=== PATIENT | female | born 1995 | race Caucasian/White ===

== ENCOUNTER 2021-01-03 06:04 | Inpatient (IN) ==
[2021-01-03] MEDS ORDERED: miSOPROStoL 200 MCG TABLET VAG PRN (07:32)
[2021-01-03] MEDS ORDERED: BUTORPHANOL 2 MG/ML VIAL IV PRN (07:32)
[2021-01-03] MEDS ORDERED: CARBOPROST TROMETHAMINE 250 MCG/ML AMP IM PRN (07:32)
[2021-01-03] MEDS: LACTATED RINGERS 1,000 ML IV SCH ×2 (07:45→13:53)
[2021-01-03] MEDS ORDERED: OXYTOCIN/LR 20 UNIT/1,000 ML BAG IV SCH (08:00)
[2021-01-03 08:06] LABS: Basophils % 0.2 % (0.0-0.8); Eosinophils # 0.1 10*3/uL (0.0-0.87); Eosinophils % 1.3 % (0.00-10.9); Hematocrit 35.8 VOL% (35.7-47.0); Hemoglobin 11.3 GM/DL (12.0-16.0); Immature Granulocytes % 0.9 %; Immature Granulocytes Absolute 0.08 #; Lymphocytes # 1.5 10*3/uL (1.4-4.0); Lymphocytes % 17.3 % (21.3-54.2); Mean Corpuscular HGB Conc 31.6 GM/DL (32-36); Mean Corpuscular Volume 83.1 FL (87-102); Mean Platelet Volume 10.5 FL (9.6-12.0); Monocytes % 8.1 % (1.7-12.7); Neutrophils % 72.2 % (38.7-73.9); Platelet Count 218 T/CUMM (130-400); Red Blood Count 4.31 MC/CUMM (3.8-5.5); Red Cell Distribution Width 14.5 % (9.3-17.3); White Blood Count 8.6 T/CUMM (4-12)
[2021-01-03] MEDS ORDERED: ePHEDrine 50 MG/ML VIAL IV PRN (12:53)
[2021-01-03] MEDS ORDERED: NALOXONE 0.4 MG/ML VIAL IV PRN (12:53)
[2021-01-03] MEDS ORDERED: CITRIC ACID/SODIUM CITRATE 30 ML UDCUP PO ONE (12:53)
[2021-01-03] MEDS ORDERED: FAMOTIDINE 20 MG/2 ML VIAL IV ONE (12:53)
[2021-01-03] MEDS ORDERED: hydrOXYzine HCL 25 MG/1 ML VIAL IM PRN (12:53)
[2021-01-03] MEDS ORDERED: diphenhydrAMINE 50 MG/1 ML VIAL IV PRN (12:53)
[2021-01-03] MEDS ORDERED: PROMETHAZINE 25 MG/1 ML VIAL IM PRN (12:53)
[2021-01-03] MEDS ORDERED: fentaNYL 2 MCG/ROPIV 0.2% EPID 100 ML EPIDURAL SCH (13:00)
[2021-01-03] MEDS: ONDANSETRON 4 MG/2 ML VIAL IV PRN ×2 (13:52→19:47)
[2021-01-03 15:58] LABS: Bilirubin,Urine Negative (Negative); Blood, Urine Negative (Negative); Glucose,Urine (UA) Negative (Negative); Ketones,Urine 80 mg/dL (Negative); Mucus,Urine Occasional /LPF (Occasional); Nitrite,Urine Negative (Negative); Protein,Urine Negative; RBC,Urine <1 /HPF (0-4); Urine Appearance CLEAR (Clear); Urine Color Yellow (Yellow); Urine Specific Gravity 1.011 (1.001-1.035); Urine Urobilinogen < 2.0 EU/DL (0.2-1.0)
[2021-01-03] MEDS ORDERED: fentaNYL 100 MCG/2 ML VIAL ONE (16:28)
[2021-01-03] MEDS ORDERED: LIDOCAINE 1% 50 ML VIAL ONE (18:21)
[2021-01-03] MEDS ORDERED: METHYLERGONOVINE 0.2 MG/1 ML AMP ONE (18:22)
[2021-01-03] MEDS ORDERED: miSOPROStoL 200 MCG TABLET PO ONE (18:32)
[2021-01-03] MEDS ORDERED: METHYLERGONOVINE 0.2 MG/1 ML AMP IM ONE (18:35)
[2021-01-03 18:42] LABS: Cord Venous Blood HCO3 23.6 MMOL/L; Cord Venous Blood PCO2 40.1 MMHG
[2021-01-03] MEDS ORDERED: OXYTOCIN/LR 20 UNIT/1,000 ML BAG IV ONE (19:58)
[2021-01-03] MEDS ORDERED: BENZOCAINE 20%/MENTHOL 0.5% SPRAY 56 GM CAN TOP PRN (21:59)
[2021-01-03] MEDS ORDERED: WITCH HAZEL PADS 100/JAR TOP PRN (22:00)
[2021-01-03] MEDS ORDERED: HYDROCORTISONE 2.5% RECTAL CREAM 30 GM TUBE TOP PRN (22:00)
[2021-01-03 23:03] LABS: Hematocrit 31.3 VOL% (35.7-47.0); Hemoglobin 9.9 GM/DL (12.0-16.0)
[2021-01-04 05:35] LABS: Basophils % 0.2 % (0.0-0.8); Eosinophils # 0.1 10*3/uL (0.0-0.87); Eosinophils % 0.4 % (0.00-10.9); Hematocrit 28.9 VOL% (35.7-47.0); Hemoglobin 9.3 GM/DL (12.0-16.0); Immature Granulocytes % 0.7 %; Lymphocytes # 1.7 10*3/uL (1.4-4.0); Lymphocytes % 12.4 % (21.3-54.2); Mean Corpuscular HGB Conc 32.2 GM/DL (32-36); Mean Corpuscular Volume 82.8 FL (87-102); Mean Platelet Volume 10.9 FL (9.6-12.0); Monocytes % 8.3 % (1.7-12.7); Platelet Count 178 T/CUMM (130-400); Red Blood Count 3.49 MC/CUMM (3.8-5.5); Red Cell Distribution Width 14.4 % (9.3-17.3); White Blood Count 13.9 T/CUMM (4-12)
[2021-01-04] MEDS: DOCUSATE SODIUM 100 MG CAPSULE PO SCH ×2 (09:47→20:42)
[2021-01-04] MEDS: FERROUS SULFATE 325 MG TABLET PO SCH (09:48)
[2021-01-04] MEDS: IBUPROFEN 800 MG TABLET PO PRN ×2 (14:42→20:42)
[2021-01-05 00:37] LABS: Hematocrit 26.3 VOL% (35.7-47.0); Hemoglobin 8.4 GM/DL (12.0-16.0)
[2021-01-05] MEDS: IBUPROFEN 800 MG TABLET PO PRN (06:39)
[2021-01-05 08:44] VITALS: BP 131/74
[2021-01-05] MEDS: FERROUS SULFATE 325 MG TABLET PO SCH (09:10)
[2021-01-05] MEDS: DOCUSATE SODIUM 100 MG CAPSULE PO SCH (09:10)
== END 2021-01-05 12:46 | disposition home or self-care (01) | DRG 541 ==
LOC: N.LD 06:04 → N.OB 21:25
PROVIDERS: ADMIT Obstetrics & Gynecology; ATTEND Obstetrics & Gynecology